=== PATIENT | male | born 1955 | race Caucasian/White ===

== ENCOUNTER 2020-12-05 14:05 | Emergency (ER) | payer SELFPAY ==
[~2020-12-05] VITALS: Ht 188 cm; Wt 84.6 kg
--- NOTE | 2020-12-05 14:10 | NUR ---
LATE ENTRY FOR 161 : REPORT GIVEN TO ROSALES PHILLIPS.
[2020-12-05] MEDS ORDERED: ONDANSETRON 2MG/ML, 2ML ONE (14:37)
--- NOTE | 2020-12-05 14:38 | NUR ---
LATE ENTRY FOR 1438: PT ARRIVES TO ED VIA PRIVATE VEHICLE. STATES HE HAD SUDDEN ONSET DIZZINESS, SOB AND DIAPHORESIS ONSET BETWEEN [id number] TODAY WHEN RISING FROM A KNEELING POSITION. FSBS ON ARRIVAL 101. PT DENIES RECENT INJURY/TRAUMA. PT NOTES BOTH FEET FELT "TINGLY" WHEN OTHER SYMTOMS STARTED. PT WAS NAUSEOUS ON ARRIVAL AND HAD EMESIS X 1. NEURO INTACT, NO DRIFT, BILATERAL GRASP EQUAL, 5/5 STRENGTH PRESENT TO ALL EXTREMITIES. PUPILS EQUAL, ROUND AND REACTIVE BILATERALLY, 2MM BILATERALLY. NO FACIAL DROOPING. PT HAS INTACT SENSATION THROUGHOUT, NO FOCAL WEAKNESS NOTED. PT SEEN AND EXAMINED BY NAVNEET LIM, PER MD CODE NEURO INDICATED. CODE NEURO CALLED IMMEDIATELY FOLLOWING MD EXAM AT 1435. NEUROLOGIST WHO WAS CONSULTED REQUESTED CT TO BE DEFERRED IN FAVOR OF STAT MRI.
--- NOTE | 2020-12-05 14:40 | NUR ---
PT TO MRI WITH ALL MONITORS, TAKEN BY THIS RN AND CCU RN.
[2020-12-05 14:45] LABS: BASOPHILS % (AUTO) 1 % (0-1); EOSINOPHILS % (AUTO) 1 % (1-7); LYMPHOCYTES % (AUTO) 42 % (22-44); MEAN CORPUSCULAR HEMOGLOBIN 32.3 pg (27.5-34.5); MEAN CORPUSCULAR HGB CONC 34.5 g/dL (33.2-36.2); MEAN PLATELET VOLUME 9.9 fL (7.4-10.4); MONOCYTES % (AUTO) 6 % (2-9); NEUTROPHILS % (AUTO) 50 % (42-75); PLATELET COUNT 197 x10^3/uL (130-400); RED BLOOD COUNT 5.03 x10^6/uL (4.38-5.82); RED CELL DISTRIBUTION WIDTH 12.8 % (9.4-14.8)
[2020-12-05 14:57] LABS: INTERNATIONAL NORMALIZED RATIO 1.07 (0.93-1.1); PROTHROMBIN TIME 11.4 Seconds (9.6-11.5)
[2020-12-05] MEDS ORDERED: SODIUM CHLORIDE 0.9% 1,000ML IVBOLUS ONE (15:00)
[2020-12-05] MEDS ORDERED: MECLIZINE CHEWABLE 25 MG TAB PO ONE (15:00)
[2020-12-05] MEDS ORDERED: ONDANSETRON 2MG/ML, 2ML IVPush ONE (15:00)
--- NOTE | 2020-12-05 15:11 | NUR ---
PT BACK FROM MRI. PT A&OX4. RESPS EVEN AND UNLABORED. SINUS LISA RATE 40'S-50'S ON WARP TENSION TESTER WITH NO ECTOPY. ALL MONITORS IN PLACE. AWAITING MRI READ AND DISPO.
--- NOTE | 2020-12-05 15:23 | NUR ---
NIH PERFORMED, SCORED ZERO. PT NOTES NAUSEA AND DIZZINESS IMPROVED. PT IS A&OX4, NEUROLOGIALLY INTACT. NO DRIFT, BILATERAL GRASP EQUAL, 5/5 STRENGTH TO ALL EXTREMITIES. PUPILS EQUAL, ROUND AND REACTIVE BILATERALLY, 2MM. PT STATES NUMBNESS TO FEET HAS RESOLVED COMPLETELY. PT DENIES ANY NUMBNESS/TINGLING AT THIS TIME.
[2020-12-05 15:26] LABS: PARTIAL THROMBOPLASTIN TIME < 23 Seconds (25-31)
[2020-12-05] MEDS ORDERED: MECLIZINE CHEWABLE 25 MG TAB ONE (15:30)
--- NOTE | 2020-12-05 15:38 | NUR ---
MRI REVIEWED BY DARIO LIM, NEGATIVE. PER , TPA NOT INDICATED. CODE NEURO CANCELLED.
--- NOTE | 2020-12-05 18:09 | NUR ---
NAVNEET LIM AT BEDSIDE TO UPDATE PT WITH RESULTS AND POC. PT IS A&O, RESPS EVEN AND UNLABORED, NADN. NSR ON TEMPORARY ADMINISTRATIVE ASSISTANT WITH NO ECTOPY, RATE 60'S. PT HAS NO COMPLAINT AT THIS TIME.
[2020-12-05 18:29] VITALS: BP 129/90
== END 2020-12-05 18:34 | disposition home or self-care (01) ==
LOC: ED 18:28
DX: R42 Dizziness and giddiness (principal); R11.2 Nausea with vomiting, unspecified; I10 Essential (primary) hypertension; F17.200 Nicotine dependence, unspecified, uncomplicated
CPT/HCPCS: 36415; 70551; 80047; 85025; 85610; 85730; 93005; 96361; 96374; 99285; J2405; J7030